=== PATIENT | female | born 2000 | race Caucasian/White ===

== ENCOUNTER → 2020-07-15 | Emergency (ER) | payer OTHER ==
[~2020-07-15] VITALS: Ht 157.5 cm; Wt 59.0 kg
== END | disposition home or self-care (01) ==
LOC: ER 09:47
DX: A05.9 Bacterial foodborne intoxication, unspecified (principal); K52.89 Other specified noninfective gastroenteritis and colitis; Z03.818 Encounter for observation for suspected exposure to other biological agents ruled out